=== PATIENT | male | born 1970 | race American Indian/Alaskan Native ===

== ENCOUNTER 2017-12-09 06:54 | Day surgery (SDC) | payer OTHER ==
[2017-12-09 07:37] LABS: Hematocrit 38.6 % (35.5-45.6); Hemoglobin 12.8 gm/dl (11.8-15.2); Mean Corpuscular HGB Conc 33 % (32-34); Mean Corpuscular Hemoglobin 32 pg (28-32); Mean Corpuscular Volume 97 fl (84-94); Platelet Count 224 K/mm3 (140-440); Red Blood Count 3.99 M/mm3 (3.65-5.03); Red Cell Distribution Width 13.9 % (13.2-15.2)
[2017-12-09 07:53] LABS: BUN/Creatinine Ratio 7; Blood Urea Nitrogen 6 mg/dL (9-20); Calcium 8.5 mg/dL (8.4-10.2); Hemolysis Index 17
[2017-12-09 07:58] LABS: INR 1.03 (0.87-1.13)
[2017-12-09] MEDS ORDERED: ECOTRIN PO NR (08:00)
[2017-12-09] MEDS ORDERED: NACL 0.9% 500 ML 500 ML IV SCH (08:00)
[2017-12-09] MEDS ORDERED: HEPARIN/NS 5000 UNIT/500ML(CATH LAB) 1,000 ML IR ONE (08:27)
[2017-12-09] MEDS ORDERED: CALAN ONE (08:27)
[2017-12-09] MEDS ORDERED: SUBLIMAZE ONE (08:58)
[2017-12-09] MEDS: NITROGLYCERIN SYRINGE 3 ML ONE ×2 (09:05→09:16)
[2017-12-09] MEDS: XYLOCAINE 2% INFILTRATI ONE ×2 (09:06→09:14)
[2017-12-09] MEDS: HEPARIN 10,000 UNITS/10 ML ONE ×3 (09:07→09:25)
[2017-12-09] MEDS: VERSED ONE ×2 (09:12→09:25)
[2017-12-09 09:42] LABS: Basophils % (Manual) 0 % (0.0-1.8); Total Cells Counted 100
[2017-12-09 09:43] LABS: RBC Morphology Normal
[2017-12-09 09:44] LABS: Platelet Estimate Cons
--- NOTE | 2017-12-09 10:25 | Short Stay Summary ---
Short Stay Documentation Date of service: 12/09/17 - History H&P: obtained from office - Allergies and Medications Current Medications: Allergies latex Adverse Reaction (Verified 06/18/14 10:32) Unknown Home Medications Medication Instructions Recorded Confirmed Last Taken Type Cyanocobalamin [Vitamin B-12] 1,000 mcg SQ 1XW 06/18/14 12/09/17 12/02/17 History Ergocalciferol [Vitamin D2] 50,000 mg PO 1XW 06/18/14 12/09/17 12/02/17 History Butalb/Acetamin/Caff 50-325-40 0.5 tab PO Q4H PRN 12/09/17 12/09/17 12/07/17 History Cholecalciferol (Vitamin D3) 1,000 unit PO QDAY 12/09/17 12/09/17 12/08/17 History [Vitamin D3] Clopidogrel Bisulfate [Plavix] 75 mg PO QDAY 12/09/17 12/09/17 12/09/17 07:30 History Montelukast [Singulair] 10 mg PO QPM 12/09/17 12/09/17 12/08/17 History [place]-3 Fatty Acids/Fish Oil [Fish 1,000 mg PO QDAY 12/09/17 12/09/17 12/08/17 History Oil] Active Medications Sodium Chloride (Nacl 0.9% 500 Ml) 500 mls @ 50 mls/hr IV DIRECT GANESH Stop: 12/09/17 17:59 Last Admin: 12/09/17 07:30 Dose: 50 mls/hr - Brief post op/procedure progress note Date of procedure: 12/09/17 Pre-op diagnosis: abnormal stress test Post-op diagnosis: same Procedure: [facility] - see dictated cath report Anesthesia: local Estimated blood loss: none Condition: stable - Disposition Condition at discharge: Good Disposition: DC-01 TO HOME OR SELFCARE - Discharge Diagnoses (1) Abnormal stress test Status: Chronic (2) History of DVT (deep vein thrombosis) Status: Chronic (3) Pernicious anemia Status: Chronic Short Stay Discharge Plan Activity: advance as tolerated Wound: open to air, keep clean and dry, per your surgeon's advice Follow up with: TAYE MELTON JR, MD [Primary Care Provider] - 7 Days JAELYN DUMONT MD [Staff Physician] - 7 Days
[2017-12-09] MEDS ORDERED: MORPHINE IV ONE ×2 (10:33→11:00)
--- NOTE | 2017-12-09 10:45 | Cardiac Catherization Report ---
CARDIAC CATHETERIZATION REFERRING PHYSICIAN: Willie Daugherty MD INDICATION FOR PROCEDURE: The patient is a very pleasant 47-year-old -[place] gentleman with a history of a DVT, strong family history of heart disease, abnormal stress test, chest pain, referred for left heart catheterization. Risks, benefits, and alternatives were discussed at length prior to obtaining informed consent. 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 Dar's test in right hand was normal. A 2 mL of 2% lidocaine was used to anesthetize the right wrist. A standard 6-Vietnamese hydrophilic sheath was used to cannulate the right radial artery via modified Seldinger technique. All exchanges performed to exchange a J-tip guidewire. A JL3.5 catheter was used to engage the left main. No dampening or ventricularization. Cineangiography was performed in all projections. JR4 catheter used to cross the valve under fluoroscopic guidance. Left ventriculography was performed in 30 CATHERINE and 30 FRENCH projections via hand injections, catheter flushed. Manual pullback was performed with continuous pressure monitoring. Catheter was used to engage the right coronary. No dampening or ventricularization. Cineangiography was performed in all projections. DATA: Aortic pressure is 130/70. LV pressure is 130, LVP of 20 mmHg. Left ventriculography revealed normal systolic performance with estimated ejection fraction of 55% -60%. No evidence of aortic stenosis. CORONARY ANATOMY: This is a right dominant system. Right coronary is a moderate sized vessel, courses AV groove, distally bifurcates in the posterior and posterolateral branch, no discrete stenosis noted. Left main comes off an acute angle. It is short, bifurcates left anterior descending, and left circumflex. Left circumflex is moderate sized vessel, courses AV groove, no significant disease. LAD is a moderate sized vessel, courses anterior intergroove, wraps around the apex, no significant disease. Left main comes off the aorta and acute angle and I was uncertain as to the ostium, thus we chose to proceed with IVUS. Additional 3000 of heparin was given. EBU 3.5 guide was used to engage left main. No dampening. Hanover wire was placed in the LAD. IVUS was performed and multiple passes were made. There is no evidence of any left main disease. It just comes off the aorta and acute angle, but no significant disease with a minimal luminal area greater than 9. There were no immediate complications. Moderate sedation was directly supervised by myself for the administration of fentanyl and Versed; start time 9:10, finish time 9:40. CONCLUSIONS: 1. No angiographic evidence of significant epicardial coronary disease in this right dominant system. 2. Acute angle takeoff of the left main interrogated by IVUS. No significant disease. 3. Normal left ventricular systolic performance, estimated ejection fraction 55%-60%. 4. No evidence of aortic stenosis. RECOMMENDATIONS: Medical management, risk factor modification, standard radial care. Follow up with Dr. Daugherty in the office. JOB# [id number] SBM/NTS
[2017-12-09 12:48] VITALS: BP 107/61
--- NOTE | 2017-12-17 15:01 | Vascular Lab Report ---
Upper extremity arterial study Reason for exam: Pain in the hand the radial artery approach for cardiac catheterization Comment: Ductal structures of the right upper extremity appear patent with triphasic waveforms proximally. The radial and ulnar arteries are patent with biphasic waveforms. There is no evidence of pseudoaneurysm formation at the right radial artery. There are no visible hematomas on this examination. Impression: Patent arterial flow throughout the right upper extremity. No evidence of hematoma or pseudoaneurysm of the right radial artery.
== END 2017-12-09 13:00 | disposition home or self-care (01) ==
LOC: CATHLABREC 06:54
PROVIDERS: ATTEND Internal Medicine
DX: R07.9 Chest pain, unspecified (principal); R94.39 Abnormal result of other cardiovascular function study; D51.0 Vitamin B12 deficiency anemia due to intrinsic factor deficiency; G40.909 Epilepsy, unspecified, not intractable, without status epilepticus; Z86.718 Personal history of other venous thrombosis and embolism; Z79.01 Long term (current) use of anticoagulants; Z91.040 Latex allergy status; Z82.49 Family history of ischemic heart disease and other diseases of the circulatory system
CPT/HCPCS: 36415; 80048; 83735; 84439; 84443; 85007; 85025; 85610; 85730; 92978; 93005; 93010; 93458; 93931; 96374; C1753; C1769; C1887; C1894; J1644; J2250; J2270; J3010; J7040; Q9967

== ENCOUNTER 2022-06-30 10:11 | Outpatient (CLI) | payer OTHER ==
[2022-06-30 11:37] LABS: Alanine Aminotransferase 15 units/L (7-56); Albumin 4.3 g/dL (3.9-5); BUN/Creatinine Ratio 10; Blood Urea Nitrogen 12 mg/dL (9-20); Calcium 9.2 mg/dL (8.4-10.2); Hemolysis Index 3
[2022-07-02 20:49] LABS: CD4/CD8 Ratio 0.42 (0.86-5.00)
== END 2022-06-30 10:12 | disposition home or self-care (01) ==
LOC: LAB 10:11
PROVIDERS: ATTEND Internal Medicine
DX: Z02.71 Encounter for disability determination (principal)
CPT/HCPCS: 36415; 80053; 82024

== ENCOUNTER 2022-07-10 17:56 | Emergency (ER) | payer SELFPAY ==
[2022-07-10 18:13] VITALS: BP 157/72
[2022-07-10 18:43] LABS: Hematocrit 44.1 % (35.5-45.6); Hemoglobin 14.5 gm/dl (11.8-15.2); Mean Corpuscular HGB Conc 33 % (32-34); Mean Corpuscular Volume 104 fl (84-94); Platelet Count 229 K/mm3 (140-440); Red Blood Count 4.25 M/mm3 (3.65-5.03); Red Cell Distribution Width 14.6 % (13.2-15.2)
[2022-07-10 19:07] LABS: Alanine Aminotransferase 19 units/L (7-56); Albumin 4.3 g/dL (3.9-5); BUN/Creatinine Ratio 6; Blood Urea Nitrogen 7 mg/dL (9-20); Calcium 9.6 mg/dL (8.4-10.2); Hemolysis Index 14
[2022-07-10 19:17] LABS: Total Cells Counted 100
[2022-07-10 19:18] LABS: Anisocytosis 1+; Platelet Estimate Consistent w Auto
== END 2022-07-10 20:00 | disposition left against medical advice (07) ==
LOC: ED 17:56
DX: R42 Dizziness and giddiness (principal); Z53.21 Procedure and treatment not carried out due to patient leaving prior to being seen by health care provider
CPT/HCPCS: 36415; 80053; 84484; 85007; 85025